=== PATIENT | male | born 1945 | race Caucasian/White ===

== ENCOUNTER → 2016-12-21 | Outpatient (CLI) | payer MEDICARE ==
[2016-12-21 10:10] LABS: Basophils # (A) 0.1 k/uL (0-0.2); Basophils % (A) 1 %; CH 31.8; CHCM 34.7; Eosinophils # (A) 0.4 k/uL (0-0.7); Eosinophils % (A) 7 %; HCT 47.5 % (39.0-53.0); HDW 2.54; HGB 16.2 gm/dL (13.0-17.5); Luc # (Auto) 0.18; Luc % (Auto) 3; Lymphocytes # (A) 1.5 k/uL (1.0-4.8); Lymphocytes % (A) 25 %; MCH 31.3 pg (25.0-35.0); MCV 92.1 fL (80.0-100.0); Mean Platelet Volume 7.2; Monocytes # (A) 0.4 k/uL (0-1.0); Monocytes % (A) 6 %; Neutrophils # (A) 3.7 k/uL (1.3-7.7); Neutrophils % (A) 59 %; RBC 5.16 m/uL (4.30-5.90); RDW 12.8 % (11.5-15.5); WBC 6.3 k/uL (3.8-10.6); WBC (Perox) 6.22
[2016-12-21 10:25] LABS: INR 2.6 (<1.1); Partial Thromboplastin Time 31.7 sec (22.0-30.0); Prothrombin Time 24.8 sec (9.0-12.0)
== END ==
LOC: LABWHC1 09:39
PROVIDERS: ATTEND Dentist General Practice
DX: D69.6 Thrombocytopenia, unspecified (principal)
CPT/HCPCS: 36415; 85025; 85610; 85730

== ENCOUNTER → 2017-10-27 | Outpatient (CLI) | payer MEDICARE ==
--- NOTE | 2017-10-28 16:23 | XR ---
EXAMINATION TYPE: XR shoulder complete LT DATE OF EXAM: 10/28/2017 CLINICAL HISTORY: Left shoulder pain after chopping wood TECHNIQUE: Three views of the left shoulder are obtained. COMPARISON: None. FINDINGS: There is no acute fracture/dislocation evident in the left shoulder. The glenohumeral giovana nt space appears within normal limits. There is mild acromioclavicular arthropathy demonstrated as sm all marginal osteophytes. The visualized ribs are intact and unremarkable. Left-sided cardiac device partially obscures the proximal humerus on the external rotation view. IMPRESSION: 1. There is no acute fracture or dislocation in the left shoulder. 2. Mild left acromio clavicular arthropathy. 3. If pain persists MRI could be performed to evaluate the rotator cuff.
== END | disposition home or self-care (01) ==
LOC: RADXRYALE 15:48
PROVIDERS: ATTEND Internal Medicine
DX: M12.812 Other specific arthropathies, not elsewhere classified, left shoulder (principal)

== ENCOUNTER 2019-01-13 16:18 | Emergency (ER) | payer MEDICARE ==
[2019-01-13 16:28] VITALS: BP 118/77; PULSE 82; RESP 18; TEMP 97.8
--- NOTE | 2019-01-13 17:03 | ED ---
Extremity Problem HPI - General Chief complaint: Extremity Problem,Nontraumatic Stated complaint: finger numbness/post shoulder surgery Time Seen by Provider: 01/13/19 16:37 Source: patient Mode of arrival: ambulatory Limitations: no limitations - History of Present Illness Initial comments: 73-year-old male presenting today for chief complaint of tingling in digits 1 through 3. Patient states he had a rotator cuff repair this morning, a nerve block was performed. Patient states he initially had no sensation of all 5 digits of the left hand following surgery. Patient states he has slowly been experiencing increased sensation in digits 4 and 5. There almost complete and normal. Patient states he has tingling sensation as though things are slated fingers 1 through 3. Patient denies any complete numbness muscle weakness speech changes, headache dizziness nausea. Or any other complaints. Patient was not sure if this was a normal postoperative symptom and presented for evaluation. Remaining review of systems negative. Upon arrival patient appears well no signs of acute distress. Sling in place. - Related Data Home Medications Medication Instructions Recorded Confirmed Atenolol [Tenormin] 25 mg PO DAILY 01/05/19 01/13/19 Atorvastatin [Lipitor] 40 mg PO HS 01/05/19 01/13/19 DULoxetine HCL [Cymbalta] 60 mg PO DAILY 01/05/19 01/05/19 Hydrochlorothiazide 25 mg PO DAILY 01/05/19 01/05/19 Levothyroxine Sodium 62.5 mcg PO SA 01/05/19 01/13/19 Levothyroxine Sodium 125 mcg PO SUMOTUWETHFR 01/05/19 01/13/19 Warfarin [Coumadin] 5 mg PO SUTUTHSA 01/05/19 01/13/19 Warfarin [Coumadin] 6 mg PO MOWEFR 01/05/19 01/05/19 traMADol HCL [Ultram] 50 mg PO TID PRN 01/05/19 01/13/19 Previous Rx's Medication Instructions Recorded Hydrocodone/Acetaminophen [Troy 1 each PO Q6HR PRN #28 tab 01/13/19 5-325] Allergies Allergy/AdvReac Type Severity Reaction Status Date / Time No Known Allergies Allergy Verified 01/13/19 16:28 Review of Systems ROS Statement: Those systems with pertinent positive or pertinent negative responses have been documented in the HPI. ROS Other: All systems not noted in ROS Statement are negative. Past Medical History Past Medical History: Atrial Fibrillation, COPD History of Any Multi-Drug Resistant Organisms: None Reported Past Surgical History: Orthopedic Surgery, Pacemaker Additional Past Surgical History / Comment(s): left rotator cuff, cyst removal from face Past Psychological History: Depression, PTSD Smoking Status: Current every day smoker Past Alcohol Use History: None Reported Past Drug Use History: None Reported General Exam - General Exam Comments Initial Comments: General: The patient is awake and alert, in no distress, and does not appear acutely ill. Eye: Pupils are equal, round and reactive to light, extra-ocular movements are intact. No nystagmus. There is normal conjunctiva bilaterally. No signs of icterus. Cardiovascular: There is a regular rate and rhythm. No murmur, rub or gallop is appreciated. Respiratory: Lungs are clear to auscultation, respirations are non-labored, breath sounds are equal. No wheezes, stridor, rales, or rhonchi. Musculoskeletal: Normal ROM at the wrists and digits of the hands equal comparison bilaterally, no tenderness. Strength 5/5 at the wrist equal comparison bilaterally. Sensation intact from the elbow to the fingertips equal comparison bilaterally. Radial pulses equal bilaterally 2+. She is able to make the okay fingers crossed thumbs up finger opposition and extension of the wrist bilaterally. Ulnar median and radial nerve appear intact. Capillary refill less than 2 seconds. . Neurological: A&O x 3. CN II-XII intact, There are no obvious motor or sensory deficits. Coordination appears grossly intact. Speech is normal. Skin: Skin is warm and dry and no rashes or lesions are noted. Psychiatric: Cooperative, appropriate mood & affect, normal judgment. Limitations: no limitations Course Vital Signs 01/13/19 16:25 Temperature 97.8 F Pulse Rate 82 Respiratory 18 Rate Blood Pressure 118/77 O2 Sat by Pulse 95 Oximetry Medical Decision Making - Medical Decision Making 73-year-old male presenting today for chief complaint of bleeding and digits 1 through 3. Patient had nerve block today after rotator cuff repaired. This was performed at 7:30 AM. Patient is discharged around 11:30 AM. This was performed by Dr. Lara and JAVIER Hoyos. I contacted Jimy hoyos who stated this is a normal postoperative finding. Patient states he he thought this was the case and denies any other concerning symptoms. No focal neurological deficits noted on exam. Patient left the emergency department without discharge paperwork. He was happy with care, verbalizing this. Patient did not want any further testing. Patient was instructed to follow-up with orthopedic surgery as scheduled outpatient return for any concerning her persistent symptoms. Patient verbalized understanding. Patient is discharged in stable condition appearing well I did discuss the case attending provider Dr. Jacobsen. Disposition Clinical Impression: Left hand paresthesia Disposition: HOME SELF-CARE Condition: Good Instructions (If sedation given, give patient instructions): Rotator Cuff Tear Repair (DC) Additional Instructions: Please use as prescribed medication as discussed. Please follow-up with Jimy Hoyos as discussed. Please return to emergency room if the symptoms increase or worsen or for any other concerns. Is patient prescribed a controlled substance at d/c from ED?: No Referrals: Andreea Montgomery MD [Primary Care Provider] - 1-2 days Uriel Hoyos PAC [PHYSICIAN [facility] ADMINISTRATOR] - 1-2 days Time of Disposition: 17:03
== END 2019-01-13 17:08 | disposition home or self-care (01) ==
LOC: EC 16:18
DX: R20.2 Paresthesia of skin (principal); I48.91 Unspecified atrial fibrillation; F32.9 Major depressive disorder, single episode, unspecified; F17.200 Nicotine dependence, unspecified, uncomplicated; Z79.01 Long term (current) use of anticoagulants; Z79.890 Hormone replacement therapy; Z79.899 Other long term (current) drug therapy; Z95.0 Presence of cardiac pacemaker; Z98.890 Other specified postprocedural states
CPT/HCPCS: 99283

== ENCOUNTER → 2019-01-13 | Day surgery (SDC) | payer MEDICARE ==
[2019-01-05 15:42] VITALS: BMI 31.7
--- NOTE | 2019-01-12 13:52 | HP ---
HISTORY AND PHYSICAL DATE OF SERVICE: 01/13/2019 Krunal Perkins is a 73-year-old patient seen with progressive left shoulder pain. We discussed options. He elected to proceed with arthroscopy. Consent was obtained. Medical clearance was provided by Dr. Montgomery. Cardiac clearance was provided by Dr. Dennis. PAST MEDICAL HISTORY: Cardiovascular disease, hypertension, hypothyroidism, hyperlipidemia. PAST SURGICAL HISTORY: Pacemaker insertion. DAILY MEDICATIONS: 1. Atenolol. 2. Atorvastatin. 3. Hydrochlorothiazide. 4. Levothyroxine. 5. Tramadol. 6. Warfarin. ALLERGIES: None. SOCIAL HISTORY: Currently smokes 1/2 pack cigarettes daily. PHYSICAL EVALUATION LEFT SHOULDER: Flexion 140 degrees, abduction is 90 degrees, external rotation 20 degrees with pain and weakness. There is tenderness along the anterior lateral acromion rotator cuff insertion site. Impingement sign is positive at 80 degrees. Drop-arm sign is positive. Distal neurovascular exam is intact. RADIOGRAPHS OF THE LEFT SHOULDER: Revealed a type 2 anterior acromion along with some cystic changes of the tuberosity. A left shoulder MRI revealed a partial rotator cuff tear. IMPRESSION: 1. Left shoulder impingement with partial rotator cuff tear. 2. Hypertension. 3. Hyperlipidemia. 4. Hypothyroidism. 5. Coronary artery disease. PLAN: Left shoulder arthroscopy with subacromial decompression, probable arthroscopic rotator cuff repair and debridement. MMODL / IJN: [id number] /
[~2019-01-13] MED LIST: BUPIVACAINE (PF) 0.5% 30 ML VIAL ONE; DEXAMETHASONE SOD PHOSPHATE 10 MG/ML 1 ML VIAL IV ONE; HYDROmorphone 0.5 MG/0.5 ML SYRINGE IVP PRN; LACTATED RINGERS 1,000 ML IV ONE; LACTATED RINGERS 1,000 ML IV SCH; LIDOCAINE 1% 20 ML VIAL (10MG/ML) FOR IV START INTRADERMA ONE; LIDOCAINE 1% INJ 10MG/ML (20 ML MDV) ONE; MIDAZOLAM 2 MG/2 ML VIAL IV PRN; ONDANSETRON 4 MG/2 ML VIAL IVP ONE; PHENYLEPHRINE-0.9% NACL SYG 1 MG/10 ML SYRINGE ONE; PROPOFOL 10 MG/ML 20 ML VIAL IV ONE; ROPIVACAINE 5 MG/ML 30 ML VIAL ONE; SCOPOLAMINE 1.5MG/72HR PATCH TRANSDERM ONE; SUCCINYLCHOLINE CHLORIDE 100 MG/5 ML SYR IV ONE; ceFAZolin IN SWFI 2 GM/20 ML SYRINGE IVP ONE; fentaNYL (PF) 50 MCG/ML 2 ML AMP IV ONE; fentaNYL (PF) 50 MCG/ML 2 ML AMP ONE
[2019-01-13 08:09] LABS: Basophils % (A) 1 %; Eosinophils # (A) 0.4 k/uL (0-0.7); Eosinophils % (A) 6 %; HCT 43.3 % (39.0-53.0); HGB 14.4 gm/dL (13.0-17.5); Lymphocytes # (A) 1.9 k/uL (1.0-4.8); Lymphocytes % (A) 25 %; MCH 29.8 pg (25.0-35.0); MCHC 33.2 g/dL (31.0-37.0); MCV 89.7 fL (80.0-100.0); Mean Platelet Volume 6.6; Monocytes # (A) 0.5 k/uL (0-1.0); Monocytes % (A) 7 %; Neutrophils # (A) 4.7 k/uL (1.3-7.7); Neutrophils % (A) 60 %; Platelet Count 206 k/uL (150-450); RBC 4.82 m/uL (4.30-5.90); WBC 7.8 k/uL (3.8-10.6)
--- NOTE | 2019-01-13 09:50 | P.ONQ ---
Anesthesiology Proc Note - PNB - Peripheral Nerve Block Performed Left Interscalene Single Time Out Performed: Yes Procedure Start Time: 07:50 Indication: Acute Post-Operative Pain Specifically requested for management of pain by DrVania: Edilberto Solorzano Sedation Type: Sedate with meaningful contact maintained Preparation: Sterile Prep Position: Supine Catheter: None Needle Types: On-Q, Other (see comment) (Pajunk) Needle Size: 50mm (2") Needle Gauge: 21 Technique: Ultrasound Injectate: 0.5% Ropivacaine (see comment for volume) (20cc) Blood Aspirated: No Pain Paresthesia on Injection Noted: No Resistance on Injection: Normal Events: Uneventful and Well Tolerated
[2019-01-13 10:21] VITALS: TEMP 97
[2019-01-13 11:27] VITALS: BP 115/77; PULSE 63; RESP 17
--- NOTE | 2019-01-15 10:13 | P.OP ---
Date of Procedure: 01/13/19 Preoperative Diagnosis: Left shoulder impingement Postoperative Diagnosis: 1. Left shoulder rotator cuff tear 2. Left shoulder impingement 3. Left shoulder acromioclavicular joint osteoarthritis 4. Left shoulder partial long head biceps tendon tear 5. Left shoulder superficial labral tear 6. 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 Left shoulder arthroscopic rotator cuff repair 2. Left shoulder arthroscopic subacromial decompression 3. Left shoulder arthroscopic Kaley procedure 4. Left shoulder arthroscopic biceps tenotomy 5. Left shoulder arthroscopic debridement labral tear Implants: 15.5 Arthrex swivel lock anchor Anesthesia: GETA, regional (Interscalene block) Surgeon: Edilberto Solorzano Estimated Blood Loss (ml): 10 Pathology: none sent Condition: stable Disposition: PACU Indications for Procedure: 73-year-old patient seen with progressive left shoulder pain. After treatment options were discussed, he elected to proceed with arthroscopy. Operative Findings: See description of procedure Description of Procedure: Patient underwent an interscalene block by department of anesthesia. The patient was then taken to the operative suite. The patient underwent a general anesthetic by the department of anesthesia. The patient was placed into a lateral position and secured. There was appropriate padding of the bony prominence. Left shoulder was then prepped and draped in normal sterile orthopedic fashion. We placed the extremity in 10 pounds of longitudinal traction. A posterior incision was now made for a posterior working portal site. The trocar and cannula were inserted into the glenohumeral joint. Arthroscopy was initiated. Spinal needle was now inserted anteriorly, to ascertain the anterior working portal site. An incision was now made in that area, a trocar was inserted followed by a probe. There was partial tearing long head biceps tendon. There were grade 4 chondromalacia changes of the glenohumeral joint predominantly involving the humeral head. I performed an arthroscopic biceps tenotomy. I debrided some of the superficial areas of labral tearing with a motorized shaver. The residual labrum was stable. I now removed instruments from glenohumeral joint. Utilizing the posterior working portal site, the trocar and cannula were inserted into the subacromial space. Arthroscopy initiated. I made an incision 2 fingerbreadths lateral to the acromion. I introduced my trocar followed by my ArthroCare ablator. I now began ablating thick subacromial bursal tissue, which exposed the undersurface of the anterior acromion. There was diminished subacromial space. There was a very prominent anterior acromion. A motorized bur was introduced and a subacromial decompression was performed. I also excised some osteophytes off the inferior aspect of the distal clavicle. The AC joint was visualized and noted to be fairly arthritic. The motorized bur was introduced in the anterior portal site and a Kaley procedure was performed without difficulty, decompressing the AC joint nicely. I turned my attention to the rotator cuff. There was a 1 cm rotator cuff tear. I debrided the margins getting down to stable tendon tissue. I abraded the footprint with a motorized bur. I passed 2 everted mattress sutures through good bites of rotator cuff tendon. I now repaired the tendon down to the footprint utilizing one single Arthrex swivel lock anchor. All residual suture limbs were now clipped. We had good compression of the tendon along the entire footprint. I injected 1 mL Renue intra-articular Instruments now removed from the portal sites. All portal sites were approximated with nylon suture. Sterile dressings were applied followed by a shoulder sling. The patient was awakened, transferred to a bed, and taken to recovery in stable condition.
== END | disposition home or self-care (01) ==
LOC: OR 06:42
PROVIDERS: ATTEND Orthopaedic Surgery
DX: M75.102 Unspecified rotator cuff tear or rupture of left shoulder, not specified as traumatic (principal); M75.42 Impingement syndrome of left shoulder; M19.012 Primary osteoarthritis, left shoulder; S43.432A Superior glenoid labrum lesion of left shoulder, initial encounter; S46.112A Strain of muscle, fascia and tendon of long head of biceps, left arm, initial encounter; X58.XXXA Exposure to other specified factors, initial encounter; M25.712 Osteophyte, left shoulder; M94.212 Chondromalacia, left shoulder; I25.10 Atherosclerotic heart disease of native coronary artery without angina pectoris; F17.210 Nicotine dependence, cigarettes, uncomplicated; I10 Essential (primary) hypertension; E03.9 Hypothyroidism, unspecified; E78.5 Hyperlipidemia, unspecified; Z95.0 Presence of cardiac pacemaker; Z79.01 Long term (current) use of anticoagulants; Z79.890 Hormone replacement therapy; Z79.899 Other long term (current) drug therapy; I48.91 Unspecified atrial fibrillation
CPT/HCPCS: 29826; 29827; 29824; 99283; 64415; 85025; 85610; C1713; C1765; J2250; J1100; J2405; J2001; J3010; J2795; J2370; J0330; J2704